=== PATIENT | female | born 1950 | race Caucasian/White ===

== ENCOUNTER → 2017-10-25 10:02 | Outpatient (CLI) | payer MEDICARE, BC, SELFPAY ==
--- NOTE | 2017-10-25 10:08 | CI_ITS ---
Cerebrovascular Exam Indications: 780.4 Dizziness and giddiness. IMPRESSIONS 1. The bilateral vertebral arteries are patent with normal antegrade flow. 2. Study suggests less than 20% stenosis involving the right internal carotid artery. 3. Study suggests 20-49% stenosis involving the left internal carotid artery. History: Risk factors: Hypertension. Diabetes mellitus. Carotid duplex study. Complete study and Doppler flow study including spectral analysis, color and perez scale imaging. Height: Height: 144.8cm. Height: 57in. Weight: Weight: 62.6kg. Weight: 137.7lb. Body mass index: BMI: 29.9kg/m^2. Body surface area: BSA: 1.61m^2. Location: Vascular laboratory. Patient status: Outpatient. Tables: Arterial flow: + +--------+--------+ Location V sys V ed + +--------+--------+ Right CCA - proximal 120cm/s 25.9cm/s + +--------+--------+ Right CCA - distal 78.6cm/s 21.2cm/s + +--------+--------+ Right ECA 177cm/s -------- + +--------+--------+ Right ICA - proximal 86.4cm/s 31.4cm/s + +--------+--------+ Right ICA - mid 89.4cm/s 26.5cm/s + +--------+--------+ Right ICA - distal 108cm/s 41.3cm/s + +--------+--------+ Right vertebral 53cm/s -------- + +--------+--------+ Left CCA - proximal 138cm/s 30.4cm/s + +--------+--------+ Left CCA - distal 74.2cm/s 20.7cm/s + +--------+--------+ Left ECA 124cm/s -------- + +--------+--------+ Left ICA - proximal 114cm/s 30.7cm/s + +--------+--------+ Left ICA - mid 62.9cm/s 22.3cm/s + +--------+--------+ Left ICA - distal 121cm/s 33.7cm/s + +--------+--------+ Left vertebral 48.9cm/s -------- + +--------+--------+ Velocity ratios: + + + + + + Right, V sys Right, V ed Left, V sys Left, V ed + + + + + + Max ICA/dist CCA 1.37 1.95 1.63 1.63 + + + + + + (Report amended ) Electronically signed by: Winston Vasquez [id number]
== END ==
PROVIDERS: Family Provider Family Medicine; PCP Nurse Practitioner Family; Visit Provider Nurse Practitioner Family
DX: R42 Dizziness and giddiness (principal)
CPT/HCPCS: 93880

== ENCOUNTER 2017-11-22 08:30 | Outpatient (RCR) | payer MEDICARE, BC, SELFPAY | END 2017-12-05 15:49 | disposition home or self-care (01) | LOC: PT 08:30 | PROVIDERS: Family Provider Family Medicine; Visit Provider Nurse Practitioner Family | DX: M54.5 Low back pain (principal) | CPT/HCPCS: 97012; 97110 ==

== ENCOUNTER → 2019-07-30 09:26 | Outpatient (CLI) | payer MEDICARE, SELFPAY ==
--- NOTE | 2019-07-30 09:33 | MM_ITS ---
PROCEDURE: MM DIG SCREENING MAMM BI W/CAD CLINICAL INDICATION: SCREENING There is no personal or family history of breast cancer COMPARISON: [facility] DIG MAMM-SCREEN BILLY from 01/31/2014 [facility] DIG MAMM-SCREEN BILLY from 06/23/2016 TECHNIQUE: Standard CC and MLO images were obtained. R2 CAD reviewed. FINDINGS: Moderate scattered fibroglandular densities are seen in the central portions of both the findings of bilateral and symmetrical. There is a benign-appearing calcification in each breast. There is no new or suspicious lesion in either breast and no suspicious microcalcifications. IMPRESSION: Fibrofatty parenchyma with no suspicious lesions seen BI-RAD Category: 2 Benign Finding(s) FOLLOW-UP: 1YR 1 Year Follow-up (A letter has been sent to the patient regarding results of the study.) Dictated by: Dr. Jefry Koroma MD 07/31/2019 10:[address] Jefry Koroma MD in [place] 07/31/2019 10:30
== END ==
PROVIDERS: PCP Nurse Practitioner Family; Visit Provider Nurse Practitioner Family
DX: Z12.31 Encounter for screening mammogram for malignant neoplasm of breast (principal)
CPT/HCPCS: 77067

== ENCOUNTER → 2020-08-07 09:57 | Outpatient (CLI) | payer MEDICARE, SELFPAY ==
--- NOTE | 2020-08-07 10:01 | MM_ITS ---
PROCEDURE: MM DIG SCREENING MAMM BI W/CAD Digital Breast Tomosynthesis Included CLINICAL INDICATION: SCREENING There is no personal or family history of breast cancer. COMPARISON: MG [facility] DIG MAMM-SCREEN BILLY from 01/31/2014 MG [facility]MSB DIG MAMM-SCREEN BILLY from 06/23/2016 MG MM DIG SCREENING MAMM BI W/CAD from 07/30/2019 TECHNIQUE: Standard CC and MLO images and 3D Tomosynthesis was obtained. R2 CAD reviewed. FINDINGS: Diffuse fibroglandular densities are seen in the central portions of both breasts. There is a small benign-appearing nodular density left breast which is stable. There is a benign-appearing calcification right breast. There is no suspicious lesion and no suspicious microcalcifications. IMPRESSION: Moderate breast density with no suspicious lesions seen BI-RAD Category: 2 Benign Finding(s) FOLLOW-UP: 1YR 1 Year Follow-up (A letter has been sent to the patient regarding results of the study.) Dictated by: Dr. Jefry Koroma MD 08/13/2020 08:44 Dr. Jefry Koroma MD in [place] 08/13/2020 08:44
== END ==
PROVIDERS: PCP Nurse Practitioner Family; Visit Provider Nurse Practitioner Family
DX: Z12.31 Encounter for screening mammogram for malignant neoplasm of breast (principal)
CPT/HCPCS: 77063; 77067

== ENCOUNTER → 2021-08-05 09:48 | Outpatient (CLI) | payer MEDICARE, SELFPAY | PROVIDERS: Visit Provider Nurse Practitioner | DX: Z20.822 Contact with and (suspected) exposure to COVID-19 (principal); U07.1 COVID-19 | CPT/HCPCS: C9803; U0003; U0005 ==